=== PATIENT | female | born 1980 | race Caucasian/White ===

== ENCOUNTER → 2017-10-15 | Outpatient (CLI) | payer BC | END | disposition home or self-care (01) | LOC: C.LAB1850 09:50 | PROVIDERS: ATTEND Obstetrics & Gynecology | DX: O09.522 Supervision of elderly multigravida, second trimester (principal); Z3A.00 Weeks of gestation of pregnancy not specified ==

== ENCOUNTER 2018-04-02 18:40 | Inpatient (IN) ==
[2018-04-02] MEDS ORDERED: LACTATED RINGER'S 1,000 ML IV PRN ×2 (19:35→20:55)
[2018-04-02] MEDS ORDERED: OXYTOCIN 30 UNITS/500 ML BAG IV PRN (19:35)
[2018-04-02] MEDS ORDERED: ePHEDrine sulfate 50 MG/ML AMP ONE (19:36)
[2018-04-02] MEDS ORDERED: BUPIVACAINE 0.25% 30 ML VIAL ONE (19:36)
[2018-04-02] MEDS ORDERED: fentaNYL citrate 100 MCG/2 ML VIAL ONE (19:37)
[2018-04-02] MEDS ORDERED: fentaNYL 2MCG/ML ROPIV 1.25MG/ML 100 ML BAG EPI ONE (19:37)
[2018-04-02] MEDS ORDERED: LACTATED RINGER'S 1,000 ML IV SCH (19:45)
--- NOTE | 2018-04-02 19:51 | History & Physical Report ---
Date of Service April 02, 2018 Assessment & Plan (1) 40 weeks gestation of : (2) Active labor at term: admit, iv, labs. fhts reassuring. desires epidural, will plan arom after comfortable. (3) AMA (advanced maternal age) multigravida 35+: (4) Gestational diabetes mellitus (GDM): bsg now and q2hrs until delivered History of Present Illness Chief Complaint: regular ctx Primary Care Provider: NO PCP 37yo at 40wks ega presents to L&D with above cc. No rom. No vb. +FM. Contractions are regular and getting more painful. PNC c/b 1. ama 2. gdm 3. rh neg pnl rh neg, ri, gbs neg obh: x 1 gynh: nl paps, no stds, LEEP 2011 pmh: hep a, asthma psh: wisdom teeth, lasik, leep allg: nkda meds: pnv, dha, iron sh: no tob/etoh/drugs fh: no nilesh anom or mr Allergies Allergy/AdvReac Type Severity Reaction Status Date / Time No Known Allergies Allergy Unverified 04/02/18 19:08 Home Medications Home Medications Medication Instructions Recorded Confirmed Type 1 tab PO DAILY 04/02/18 04/02/18 History iron tab PO DAILY 04/02/18 History Patient History Medical History Gestational diabetes Asthma Surgical History H/O LEEP Family History Father Multiple sclerosis HTN (hypertension) Sister Multiple sclerosis Mother Scoliosis Social History marital status: Current Living Situation: Spouse Feels Safe at Home: Yes Safety Concerns: Feels Safe At This Time Smoking Status: Never smoker Hx Alcohol Use: No Hx Substance Use: No Beliefs That Will Affect Care: None Preferred Language: Amharic Project Control Officer Required: No Review of Systems per hpi Physical Exam 2 Vital Signs (Past 24 Hours): Last Vital Signs Temp 36.5 C 04/02/18 19:18 Pulse 74 04/02/18 19:18 Resp 18 04/02/18 19:18 BP 116/79 04/02/18 19:18 Constitutional: WD/WN, vitals as above Respiratory: normal respiratory effort, lungs clear to auscultation Cardiovascular: Rate/Rhythm: regular rate and regular rhythm Gastrointestinal (Abdomen): soft gravid nt Musculoskeletal: no edema Neurologic: grossly normal Genitourinary: OB Exam Abdomen: + estimated weight (7.5#) Manual OB Exam: + cervical dilation 8 cm, + cervical effacement 100% and + station -1 OB Exam Monitor Tracing: + external FHT monitor used (130 mod variability), + external uterine monitor used (q2), + category I and + normal FHT variability
[2018-04-02 20:00] LABS: Hematocrit (blood only) 40.2 % (37-47); Hemoglobin 14.1 g/dL (12.0-16.0); Mean Corpuscular Volume 91.6 fL (80-100); Mean Platelet Volume 10.5 fL (7.4-10.4); Platelet Count 219 K/uL (130-400); RDW Coefficient of Variation 12.8 % (11.5-14.5); Red Blood Count 4.39 M/uL (4.2-5.4); White Blood Count 20.14 K/uL (4.8-10.8)
[2018-04-02 20:01] LABS: Mean Corpuscular Hgb Conc 35.1 g/dL (32-36)
--- NOTE | 2018-04-02 20:06 | Anesthesiology Consultation ---
Date of Service April 02, 2018 Assessment & Plan Chart Review Chart Review: Patient NOT seen in Pre Admission Testing and Acceptable Risk for Labor Epidural Consults Requested none ASA ASA2 Proposed Anesthesia Anesthesia Type: Labor Epidural Risk / Benefits Reviewed With: PT / POA / Parent / Guardian, Accepts Plan and Informed Consent Obtained NPO Date Last Intake of Fluids: 04/02/18 Time Last Intake of Fluids: 20:00 Date Last Intake of Solids: 04/02/18 Time Last Intake of Solids: 12:30 History Height/Weight Height: 1.65 m Weight: 84.368 kg Allergies Allergy/AdvReac Type Severity Reaction Status Date / Time No Known Allergies Allergy Unverified 04/02/18 19:08 Medications Home Medications Medication Instructions Recorded Confirmed Last Taken 1 tab PO DAILY 04/02/18 04/02/18 04/01/18 08:00 iron tab PO DAILY 04/02/18 04/01/18 08:00 Active Medications Generic Name Dose Route Start Last Admin Trade Name Freq PRN Reason Stop Dose Admin Lactated Ringer's 1,000 mls @ 999 mls/hr 04/02/18 19:35 04/02/18 19:45 Lr IV 05/02/18 19:34 999 mls/hr .Q1H1M PRN Administration (Pre-Anesthesia) Past Medical History Medical History Gestational diabetes Asthma Mild. Does not use inhaler regularly. No h/o hospitalization/intubation Anemia History of wisdom tooth extraction Past Family History Family History Father Multiple sclerosis HTN (hypertension) Sister Multiple sclerosis Mother Scoliosis Past Surgical History Surgical History H/O LEEP Past Anesthesia History No Hx of Anesthesia Complications and No Family Hx of Anesthesia Complications History of PONV Yes Motion Sickness Screening History of Motion Sickness: Yes Social History Smoking Status: Never smoker Do You Dip or Chew Tobacco: No Hx Alcohol Use: No Hx Substance Use: No Exercise / Class Metabolic Activity II 4-5 Yardwork/Stairs/Walk up hill Physical Exam Vital Signs Last Vital Signs Temp 36.5 C 04/02/18 19:18 Pulse 74 04/02/18 19:18 Resp 18 04/02/18 19:18 BP 116/79 04/02/18 19:18 ENMT Mouth: no TMJ abnormality and no TMJ clicking Thyromental Distance: > or= 3.5 Finger Breadths Mallampati Class: II Neck neck extension not limited Respiratory Auscultation: lungs clear to auscultation bilaterally Cardiovascular Rate/Rhythm: regular rate and regular rhythm Psychiatric Orientation: alert and oriented x 3 Testing Laboratory Results 04/02/18 19:46 04/02/18 19:38 POC Glucose 85
[2018-04-02] MEDS ORDERED: fentaNYL 2MCG/ML ROPIV 1.25MG/ML 100 ML BAG EPI PRN (20:55)
[2018-04-02] MEDS ORDERED: NALBUPHINE HCL INJ 10 MG/ML AMP IV PRN (20:55)
[2018-04-02] MEDS ORDERED: DiphenhydrAMINE HCL 50 MG/ML VIAL IV PRN (20:55)
[2018-04-02] MEDS ORDERED: ONDANSETRON INJ 2 MG/ML 2 ML VIAL IV PRN (20:55)
[2018-04-02] MEDS ORDERED: NALOXONE HCL 0.4 MG/1 ML VIAL/CARP IV PRN (20:55)
[2018-04-02] MEDS ORDERED: NALOXONE HCL 1 MG in SODIUM CHLORIDE 0.9% 1000ML 1,000 ML IV PRN (20:55)
[2018-04-02] MEDS ORDERED: PROMETHAZINE HCL 12.5 MG in SODIUM CHLORIDE 0.9% 50 ML IV PRN (20:55)
[2018-04-02] MEDS ORDERED: ePHEDrine sulfate 50 MG/ML AMP IV PRN (20:55)
--- NOTE | 2018-04-02 21:31 | Obstetrical Progress Note ---
Date of Service April 02, 2018 Assessment & Plan (1) 40 weeks gestation of : (2) Gestational diabetes mellitus (GDM): (3) AMA (advanced maternal age) multigravida 35+: (4) Active labor at term: will see how arom advances labor pattern. fhts reassuring. Subjective comfortable with epidural Physical Exam 2 Vital Signs (Past 24 Hours): Last Vital Signs Temp 36.4 C L 04/02/18 20:56 Pulse 85 04/02/18 21:24 Resp 16 04/02/18 20:56 BP 121/68 04/02/18 21:24 Pulse Ox 90 04/02/18 21:20 Constitutional: WD/WN, vitals as above Genitourinary: Manual OB Exam: + cervical dilation 8 cm, + cervical effacement 80%, + station -1 and + amniotic fluid (AROM) clear OB Exam Monitor Tracing: + external FHT monitor used (130 mod variability), + external uterine monitor used (q2-3), + category I and + normal FHT variability
--- NOTE | 2018-04-03 02:08 | Delivery Summary ---
DATE OF OPERATION: 04/03/2018 The patient dilated to complete and pushed to deliver a viable female infant, Apgars 9 and 9 via over intact perineum. Mouth and nose bulb suctioned at the perineum. The shoulders and body delivered with ease. Infant vigorous and crying at . Cord clamped at 30 seconds of life and then doubly clamped and cut. to maternal abdomen. Placenta delivered spontaneously and intact 3-vessel cord. Hemostasis was achieved with dilute Pitocin and uterine massage. Cervix and sulci intact. Mother and baby stable in recovery. EBL 300 mL. I attest to the content of the Intraoperative Record and any orders documented therein. Any exception s are noted below.
--- NOTE | 2018-04-03 02:23 | Anesthesia Procedure Note ---
Date of Service April 03, 2018 Anesthesia Post Epidural Note Vital Signs Vital Signs: Temp Pulse Resp BP Pulse Ox 04/03/18 02:13 82 115/62 04/03/18 01:50 18 04/03/18 01:43 79 113/63 04/03/18 01:13 85 18 119/59 L 04/03/18 00:58 90 18 127/76 04/03/18 00:43 83 18 123/64 04/03/18 00:29 90 16 120/64 04/03/18 00:14 101 H 94 04/03/18 00:13 37.1 C 89 18 118/66 04/03/18 00:09 87 123/67 98 04/03/18 00:07 89 93 04/03/18 00:04 92 H 97 04/03/18 00:01 102 H 91 04/02/18 23:59 97 H 82 L 04/02/18 23:55 92 H 90 04/02/18 23:54 91 H 98 04/02/18 23:49 95 H 97 04/02/18 23:47 106 H 92 04/02/18 23:44 84 76 L 04/02/18 23:41 94 H 85 L 04/02/18 23:40 85 99/60 L 04/02/18 23:39 88 99 04/02/18 23:36 84 89 L 04/02/18 23:34 90 97 04/02/18 23:31 85 94 04/02/18 23:29 87 99 04/02/18 23:24 81 99 04/02/18 23:23 83 88 L 04/02/18 23:19 89 97 04/02/18 23:14 80 100 04/02/18 23:12 86 91 04/02/18 23:09 83 91 04/02/18 23:06 80 91 04/02/18 23:04 80 100 04/02/18 23:00 87 92 04/02/18 22:59 84 88 L 04/02/18 22:55 75 115/70 92 04/02/18 22:54 79 100 04/02/18 22:49 89 100 04/02/18 22:46 88 92 04/02/18 22:44 85 98 04/02/18 22:40 90 93 04/02/18 22:39 84 123/64 100 04/02/18 22:35 93 H 91 04/02/18 22:34 89 95 04/02/18 22:29 87 96 04/02/18 22:25 37.1 C 80 104/56 L 04/02/18 22:24 78 99 04/02/18 22:19 79 99 04/02/18 22:14 84 98 04/02/18 22:13 85 89 L 04/02/18 22:09 82 95/50 L 99 04/02/18 22:04 79 100 04/02/18 21:59 81 100 04/02/18 21:54 75 96/54 L 100 04/02/18 21:49 77 100 04/02/18 21:45 75 92 04/02/18 21:44 76 94 04/02/18 21:40 78 16 109/55 L 04/02/18 21:39 80 77 L 04/02/18 21:34 79 95 04/02/18 21:32 81 92 04/02/18 21:29 87 78 L 04/02/18 21:26 92 H 90 04/02/18 21:24 80 18 121/68 90 04/02/18 21:20 84 90 04/02/18 21:19 79 71 L 04/02/18 21:14 77 81 L 04/02/18 21:09 74 121/79 89 L 04/02/18 21:07 78 92 04/02/18 21:03 78 97 04/02/18 21:01 73 91 04/02/18 20:58 71 99 04/02/18 20:56 36.4 C L 83 16 116/63 04/02/18 20:55 77 87 L 04/02/18 20:53 76 100 04/02/18 20:50 99 H 91 04/02/18 20:48 95 H 90 04/02/18 20:43 84 92 04/02/18 20:38 84 18 101/59 L 100 04/02/18 20:36 81 114/59 L 04/02/18 20:33 85 98 04/02/18 20:31 79 117/63 04/02/18 20:30 89 91 04/02/18 20:28 80 119/76 98 04/02/18 20:24 78 92 04/02/18 20:23 82 86 L 04/02/18 20:18 84 92 04/02/18 20:12 93 H 91 04/02/18 19:18 36.5 C 74 18 116/79 04/02/18 18:57 36.5 C 74 18 79 Notes Mental Status: alert / awake / arousable and participated in evaluation Nausea / Vomiting: adequately controlled Pain: adequately controlled Airway Patency, RR, SpO2: stable & adequate BP & HR: stable & adequate Hydration State: stable & adequate Neuraxial Anesthesia: was administered and sensory block is resolving Anesthetic Complications: no major complications apparent and Pt Satisfied with anesthetic care Epidural: Removed without complications and With tip intact
[2018-04-03] MEDS ORDERED: OXYTOCIN 30 UNITS/500 ML BAG IV PRN (03:13)
[2018-04-03] MEDS ORDERED: OXYCODONE/ACETAMINOPHEN 5mg/325mg TAB PO PRN (03:13)
[2018-04-03] MEDS ORDERED: OXYTOCIN 20 UNITS in LACTATED RINGER'S 1,000 ML IV SCH (03:13)
[2018-04-03] MEDS ORDERED: DIPHTHERIA/TETANUS/PERTUSSIS 0.5 ML SYR/VIAL IM ONE (03:13)
[2018-04-03] MEDS ORDERED: BENZOCAINE 20% AER SPR 82.5 GM CAN EXT PRN (03:13)
[2018-04-03] MEDS ORDERED: ACETAMINOPHEN 325 MG TAB PO PRN (03:13)
[2018-04-03] MEDS ORDERED: SUPERCREAM 0.870% 15 GM JAR EXT PRN (03:13)
[2018-04-03] MEDS ORDERED: HYDROCORTISONE ACETATE 25 MG SUPP PR PRN (03:13)
[2018-04-03] MEDS: IBUPROFEN 600 MG TAB PO PRN ×2 (04:40→15:21)
--- NOTE | 2018-04-03 06:55 | Obstetrical Progress Note ---
Date of Service April 03, 2018 Assessment & Plan (1) 40 weeks gestation of : (2) Gestational diabetes mellitus (GDM): (3) AMA (advanced maternal age) multigravida 35+: (4) Normal delivery at term: stable, doing well. routine care. Subjective Ambulation: ambulating normally Voiding: no voiding problems Diet Tolerance:: regular diet Lochia:: Moderate Feeding Type:: breast feeding Physical Exam Vital Signs (Past 24 Hours) Last Vital Signs Temp 36.6 C 04/03/18 03:00 Pulse 92 H 04/03/18 03:00 Resp 18 04/03/18 03:00 BP 111/65 04/03/18 03:00 Pulse Ox 94 04/03/18 00:14 Constitutional WD/WN, vitals as above Respiratory normal respiratory effort, lungs clear to auscultation Cardiovascular Rate/Rhythm: regular rate and regular rhythm Gastrointestinal (Abdomen) Inspection/Auscultation: abdomen normal to inspection Percussion/Palpation: abdomen soft Fundus firm 2cm down Psychiatric A+Ox3, euthymic affect
[2018-04-03] MEDS: PRENATAL VITAMIN 1 TAB PO SCH (08:05)
[2018-04-03] MEDS: DOCUSATE SODIUM 100 MG CAP PO SCH ×2 (08:05→21:00)
--- NOTE | 2018-04-04 06:52 | Obstetrical Progress Note ---
Date of Service <Trip Marie MD - Last Filed: 04/04/18 06:54> April 04, 2018 Assessment & Plan <Trip Marie MD - Last Filed: 04/04/18 06:54> (1) Normal delivery at term: Lauryn is a 37yo at 40wks ega who presented to L&D with active labor now s/p PPD#2 - Rh negative*, RI, GBS-, AMA - Baby blood type B+. Anti-D BBK profile completed. - Feels well today. Eating well, voiding well, ambulating well. - Pain well controlled with ibuprofen 600mg Q4H PRN. - Routine post partrum care - After discharge will have [address] Reina. (2) AMA (advanced maternal age) multigravida 35+: (3) 40 weeks gestation of : (4) Gestational diabetes mellitus (GDM): Subjective <Trip Marie MD - Last Filed: 04/04/18 06:54> Ambulation: ambulating normally Voiding: no voiding problems Passing Gas:: Yes Diet Tolerance:: regular diet Feeding Type:: breast feeding Current Pain Level(1-10): 0 Review of Systems Denies fever, chills, sweats Denies shortness of breath, difficulty breathing, chest pain, palpitations, chest pressure. Denies breast pain. Denies dysuria. Denies headache. Physical Exam <Trip Marie MD - Last Filed: 04/04/18 06:54> Vital Signs (Past 24 Hours) Last Vital Signs Temp 36.4 C L 04/03/18 22:49 Pulse 60 04/03/18 22:49 Resp 18 04/03/18 22:49 BP 116/75 04/03/18 22:49 Pulse Ox 94 04/03/18 00:14 General: Alert, oriented. No acute distress. Cardiac: Regular rate and rhythm, no murmurs/rubs/gallops. Respiratory: Clear to auscultation anterior and posteriorly, no wheezes/rales/ rhonchi. No increased work of breathing. Symmetrical chest rise. No respiratory distress. Abdomen: Soft, nontender, nondistended. Bowel sounds present. Uterus: Uterine fundus firm, palpable 2-3cm below umbilicus. Lower Extremities: No lower extremity edema or swelling. No deep calf pain. Sourav's negative bilaterally. <Laura Rosa MD, FACOG - Last Filed: 04/05/18 11:34> Co-Signing Physician Notes Resident Physician Supervision Note: I interviewed and examined the patient. Discussed with Dr. Marie and agree with findings and plan as documented in the note. Any exceptions or clarifications are listed here: [None] Documented By: Laura Rosa MD, FACOG Resident Activity Tracking <Trip Marie MD - Last Filed: 04/04/18 06:54> Resident Involvement: Resident Care Provided Care Provided: Adult Hospital Medicine
[2018-04-04] MEDS: DOCUSATE SODIUM 100 MG CAP PO SCH (07:24)
[2018-04-04] MEDS: PRENATAL VITAMIN 1 TAB PO SCH (07:25)
[2018-04-04] MEDS: IBUPROFEN 600 MG TAB PO PRN (07:25)
== END 2018-04-04 12:30 | disposition home or self-care (01) | DRG 807 ==
LOC: OPB 18:40 → 4S1 18:41 → 4S2 04-03 02:45
DX: O09.523 Supervision of elderly multigravida, third trimester; Z3A.40 40 weeks gestation of pregnancy; Z37.0 Single live birth; O24.419 Gestational diabetes mellitus in pregnancy, unspecified control